=== PATIENT | male | born 2000 | race Two or more races ===

== ENCOUNTER 2023-05-24 13:52 | Emergency (ER) | payer SELFPAY ==
[2023-05-24 13:55] VITALS: BP 126/68; PULSE 121; RESP 16; TEMP 36.7; O2SAT 97; BMI 29.8
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
[2023-05-24 14:45] VITALS: BP 131/87; PULSE 98; RESP 16; TEMP 36.7; O2SAT 98
== END 2023-05-24 14:47 ==
PROVIDERS: Emergency Provider Student in an Organized Health Care Education/Training Program
DX: Z02.89 Encounter for other administrative examinations (principal)
CPT/HCPCS: 99281; 99282